=== PATIENT | female | born 1980 | race Caucasian/White ===

== ENCOUNTER 2022-10-01 16:27 | Emergency (ER) | payer OTHER ==
[~2022-10-01] VITALS: Ht 167.6 cm; Wt 80.0 kg
[2022-10-01 16:52] VITALS: BP 135/94
[2022-10-01] MEDS ORDERED: HYDR-4001 MT (19:38)
[2022-10-01] MEDS ORDERED: IBUPROFEN 600MG TABLET PO ONE (20:00)
[2022-10-01] MEDS ORDERED: PREDNISONE 20MG TABLET PO ONE (20:00)
[2022-10-01] MEDS ORDERED: HYDROCODONE/ACETAMINOPHEN 5/325MG TABLET PO ONE (20:00)
== END 2022-10-01 20:45 | disposition left against medical advice (07) ==
LOC: ER 16:27
DX: Z53.21 Procedure and treatment not carried out due to patient leaving prior to being seen by health care provider (principal)
CPT/HCPCS: J7512